=== PATIENT | female | born 1970 | race Caucasian/White ===

== ENCOUNTER 2020-05-24 11:15 | Outpatient (REF) | payer OTHER, SELFPAY ==
[2020-05-24 11:37] LABS: COVID-19 Test Negative (Negative)
== END 2020-05-24 11:16 | disposition home or self-care (01) ==
LOC: HO.LAB 11:15
PROVIDERS: PCP Internal Medicine; Visit Provider Internal Medicine
DX: Z20.828 Contact with and (suspected) exposure to other viral communicable diseases (principal)
CPT/HCPCS: 87635

== ENCOUNTER 2020-07-18 15:06 | Outpatient (REF) | payer OTHER, SELFPAY ==
--- NOTE | 2020-07-18 15:12 | MM_ITS ---
EXAMINATION: MM SCREENING DIGITAL BREAST TOMOSYNTHESIS, BILATERAL CLINICAL INFORMATION: Screening. Asymptomatic. Family history breast cancer mother (BRCA neg), grandmother. History benign left MR guided biopsy 2017 (fibroadenoma). The lifetime risk of breast cancer based on the Tyrer-Cuzick Model is 26%. COMPARISON: Mammography: 03/10/2019, 02/07/2018, MR breasts 08/28/2018. TECHNIQUE: Digital breast tomosynthesis is performed in both the craniocaudal and mediolateral oblique views along with computer-aided detection (CAD). Synthesized 2D images are generated from the tomosynthesis. FINDINGS: The breasts are heterogeneously dense, which may obscure small masses (ACR BI-RADS breast composition Category c). Breast tissue composition borders on average fibroglandular. There are no significant masses, abnormal calcifications, or other abnormalities. The cyst posterior upper outer right breast is again decreased in size from prior studies. Neither breast shows interval mass or architectural abnormality or abnormal calcifications. Again, there are 2 biopsy clip markers left breast central aspect and mid 2:30 o'clock position. MM/MM tomosynthesis screening BI IMPRESSION: No mammographic evidence of malignancy. ASSESSMENT: BI-RADS 2: Benign RECOMMENDATION: 1. Routine annual mammography screening. 2. The lifetime risk of breast cancer based on the Tyrer-Cuzick Model is 26%. Additional annual adjunct screening with breast MRI may be of benefit in women with a risk score of 20% or greater. This patient's information was entered into a reminder system with a target due date for their next mammogram.
== END 2020-07-18 15:07 | disposition home or self-care (01) ==
LOC: HO.MAMMO 15:06
PROVIDERS: PCP Internal Medicine; Visit Provider Obstetrics & Gynecology Gynecology
DX: Z12.31 Encounter for screening mammogram for malignant neoplasm of breast (principal)
CPT/HCPCS: 77063; 77067

== ENCOUNTER 2020-09-26 08:23 | Outpatient (REF) | payer OTHER, SELFPAY ==
[2020-09-26 08:46] LABS: COVID-19 Test Negative (Negative); IDNOW Serial# 55D5AD1C
== END 2020-09-26 08:24 | disposition home or self-care (01) ==
LOC: HO.EMPCOV 08:23
PROVIDERS: Visit Provider Internal Medicine
DX: Z20.822 Contact with and (suspected) exposure to COVID-19 (principal)
CPT/HCPCS: 36415; 87635; C9803

== ENCOUNTER 2020-12-02 08:22 | Outpatient (REF) | payer OTHER, SELFPAY ==
[2020-12-02 11:39] LABS: MANUAL DIFF FLAG NO
[2020-12-02 11:55] LABS: Basophils Percent Auto 0.5 % (0-2); Eosinophils Absolute Auto 0.1 X10*3/uL (0.0-0.4); Eosinophils Percent Auto 1.3 % (0-4); Hematocrit 44.1 % (37-47); Hemoglobin 14.6 g/dl (12.0-16.0); Imm Gran Abs Auto 0.02 X10*3/uL (0.00-0.03); Imm Gran Pct Auto 0.2 % (0.0-0.4); Lymphocytes Absolute Auto 1.8 X10*3/uL (1.2-4.9); Lymphocytes Percent Auto 21.3 % (20-40); Mean Corpuscular HGB Conc 33.1 g/dl (31.0-35.0); Mean Corpuscular Hemoglobin 32.6 pg (27.0-33.0); Mean Corpuscular Volume 98.4 fL (80-98); Mean Platelet Volume 10.9 fL (9.4-12.3); Monocytes Absolute Auto 0.6 X10*3/uL (0.1-1.2); Monocytes Percent Auto 7.2 % (2-11); Neutrophils Absolute Auto 5.7 X10*3/uL (2.0-8.3); Neutrophils Percent Auto 69.5 % (45-73); Platelet Count 207 X10*3/uL (160-400); Red Blood Count 4.48 X10*6/uL (4.20-5.50); Red Cell Distribution Width 12.4 % (11.0-16.0); White Blood Count 8.2 X10*3/uL (4.8-10.8)
[2020-12-02 12:08] LABS: Alanine Aminotransferase 19 U/L (0-31); Albumin Level 4.7 g/dL (3.5-5.0); Alkaline Phosphatase 67 U/L (39-117); Anion Gap 14 (12-20); Aspartate Amino Transferase 20 U/L (5-31); Bilirubin Total 0.7 mg/dL (0.0-1.0); Blood Urea Nitrogen 15 mg/dL (9-16); Calcium 9.8 mg/dL (8.4-10.2); Carbon Dioxide 29 mmol/L (22-29); Chloride 105 mmol/L (96-108); Estimated Glomerular Filt Rate > 60; Glucose Random 78 mg/dL (60-115); Potassium 4.6 mmol/L (3.3-5.1); Sodium 143 mmol/L (135-145); Total Protein 7.2 g/dL (6.5-8.0)
[2020-12-02 12:36] LABS: Erythrocyte Sedimentation Rate 7 MM/HR (0-20)
== END 2020-12-02 08:23 | disposition home or self-care (01) ==
LOC: HO.HMGCLDS 08:22
PROVIDERS: PCP Nurse Practitioner Family; Visit Provider Nurse Practitioner Family
DX: Z00.00 Encounter for general adult medical examination without abnormal findings (principal); R59.0 Localized enlarged lymph nodes
CPT/HCPCS: 36415; 80053; 85025; 85652

== ENCOUNTER 2020-12-06 15:20 | Outpatient (REF) | payer OTHER, SELFPAY ==
--- NOTE | ~2020-12-06 | US_ITS ---
EXAMINATION: US SOFT TISSUE NECK CLINICAL INFORMATION: Localized enlarged lymph nodes. COMPARISON: Ultrasound soft tissue head/neck thyroid dated 07/31/2019 and 11/15/2016. CT neck with intravenous contrast dated 11/28/2016. TECHNIQUE: Ultrasound of the left cervical neck soft tissues is performed with high- frequency galaviz-scale imaging and color Doppler. FINDINGS: There are numerous left cervical lymph nodes. Largest lymph nodes are left level 2 lymph nodes adjacent to the submandibular gland. The largest lymph node measures 1.4 x 0.9 x 1.4 cm. This is slightly enlarged, diffusely hypoechoic without hyperechoic hilum and demonstrates mixed cortical and hilar flow. This appears increased in size from previous exam July 2019. US/US soft tiss head and/or neck IMPRESSION: Numerous left cervical lymph nodes. Largest lymph node is a left submandibular lymph node with abnormal ultrasound morphology and flow and is increased in size from July 2019. Tissue sampling should be considered.
== END 2020-12-06 15:21 | disposition home or self-care (01) ==
LOC: HO.HMGCX 15:20
PROVIDERS: PCP Nurse Practitioner Family; Visit Provider Nurse Practitioner Family
DX: R59.0 Localized enlarged lymph nodes (principal)
CPT/HCPCS: 76536

== ENCOUNTER → 2020-12-20 09:21 | Outpatient (BNVA) | payer OTHER, SELFPAY | PROVIDERS: PCP Nurse Practitioner Family; Visit Provider Surgery ==

== ENCOUNTER 2021-01-03 08:40 | Outpatient (REF) | payer OTHER, SELFPAY ==
--- NOTE | ~2021-01-03 | US_ITS ---
EXAMINATION: ULTRASOUND-GUIDED LEFT SOME NODULAR LYMPH NODE BIOPSY CLINICAL INFORMATION: Enlarging cervical left lymph nodes COMPARISON: Ultrasound soft tissue neck TECHNIQUE: Following explaining ultrasound-guided left neck lymph node biopsy procedure, benefits and risk, a written consent was obtained. Patient was placed supine on ultrasound stretcher and preliminary ultrasound imaging was obtained through the left neck and documented. An optimal site was selected along the left neck in the submandibular fossa and marked. Marked site was cleaned and draped in usual sterile manner. 1% lidocaine was injected puncture site. Under sterile ultrasound guidance. The pass fine-needle biopsy aspiration was performed through the largest left submental lymph node. Postprocedure complete hemostasis achieved at puncture site. Patient tolerated procedure extremely well. FINDINGS: Successful ultrasound-guided left cervical/submental space lymph node fine-needle aspiration performed. Preliminary pathology results revealed adequate tissue for diagnosis. Tissue collected was sent for lymphoma/flow cytometry evaluation US/US guided fine needle asp IMPRESSION: Excess fecal ultrasound-guided left neck/submental space lymph node fine-needle aspiration biopsy performed.
[2021-01-03] MEDS: Lidocaine HCl 1 % MPF 5 ML VIAL SUBCUT (10:06)
== END 2021-01-03 08:41 | disposition home or self-care (01) ==
LOC: HO.US 08:40
PROVIDERS: Radiology Diagnostic Radiology; PCP Nurse Practitioner Family; Visit Provider Surgery
DX: R59.0 Localized enlarged lymph nodes (principal)
CPT/HCPCS: 10005; 36415; 88172; 88173; 88177; 88184; 88185; 88300

== ENCOUNTER 2021-01-16 12:46 | Outpatient (REF) | payer OTHER, SELFPAY ==
--- NOTE | ~2021-01-16 | US_ITS ---
EXAMINATION: US SCREENING ULTRASOUND BREAST, BILATERAL CLINICAL INFORMATION: Dense breasts on mammography. Screening ultrasound. Tyrer-Cuzick Score 26%. Family history breast cancer, mother and grandmother. Personal history benign left ultrasound-guided biopsy 08/17/2015 (benign breast tissue with portions of apocrine cyst). Personal history benign left MR-guided biopsy 09/12/2016 (fibroadenoma). COMPARISON: Mammography 07/18/2020, targeted right breast ultrasound 02/11/2018, targeted left breast ultrasound 08/31/2016 and 12/28/2015. TECHNIQUE: Ultrasound is performed using grayscale imaging and color Doppler. Imaging is performed to include the four quadrants and retroareolar region. Both breasts are imaged. FINDINGS: Right breast: There is no suspicious finding by ultrasound. There is no solid mass or focal architectural abnormality. The previously noted cyst 10:00 position 5 cm from nipple is decreased in size. Prior measurements are 1.4 x 0.9 cm and current measurements are 0.6 x 0.5 cm. There is increased through-transmission of sound. Left breast: There is no suspicious finding by ultrasound. There is no cystic or solid mass or focal architectural abnormality. US/US breast RT complete IMPRESSION: 1. No suspicious findings on screening breast ultrasound. 2. Small cyst upper outer right breast decreased in size from prior ultrasound 2017. ASSESSMENT: BI-RADS 2: Benign RECOMMENDATION: Routine annual mammography screening. This patient's information was entered into a reminder system with a target due date for their next mammogram.
--- NOTE | ~2021-01-16 | US_ITS ---
EXAMINATION: US SCREENING ULTRASOUND BREAST, BILATERAL CLINICAL INFORMATION: Dense breasts on mammography. Screening ultrasound. Tyrer-Cuzick Score 26%. Family history breast cancer, mother and grandmother. Personal history benign left ultrasound-guided biopsy 08/17/2015 (benign breast tissue with portions of apocrine cyst). Personal history benign left MR-guided biopsy 09/12/2016 (fibroadenoma). COMPARISON: Mammography 07/18/2020, targeted right breast ultrasound 02/11/2018, targeted left breast ultrasound 08/31/2016 and 12/28/2015. TECHNIQUE: Ultrasound is performed using grayscale imaging and color Doppler. Imaging is performed to include the four quadrants and retroareolar region. Both breasts are imaged. FINDINGS: Right breast: There is no suspicious finding by ultrasound. There is no solid mass or focal architectural abnormality. The previously noted cyst 10:00 position 5 cm from nipple is decreased in size. Prior measurements are 1.4 x 0.9 cm and current measurements are 0.6 x 0.5 cm. There is increased through-transmission of sound. Left breast: There is no suspicious finding by ultrasound. There is no cystic or solid mass or focal architectural abnormality. US/US breast LT complete IMPRESSION: 1. No suspicious findings on screening breast ultrasound. 2. Small cyst upper outer right breast decreased in size from prior ultrasound 2017. ASSESSMENT: BI-RADS 2: Benign RECOMMENDATION: Routine annual mammography screening. This patient's information was entered into a reminder system with a target due date for their next mammogram.
== END 2021-01-16 12:47 | disposition home or self-care (01) ==
LOC: HO.MAMMO 12:46
PROVIDERS: PCP Nurse Practitioner Family; Visit Provider Obstetrics & Gynecology Gynecology
DX: R92.2 Inconclusive mammogram (principal)
CPT/HCPCS: 76641

== ENCOUNTER 2021-07-19 12:09 | Outpatient (REF) | payer OTHER, SELFPAY ==
[2021-07-19 13:16] LABS: Appearance Urine CLOUDY; Color Urine YELLOW; Glucose Urine UA NEG (NEG); Leukocyte Esterase Urine 1+ (NEG); Nitrite Urine POS (NEG); PH 5.5 (5.0-8.0); Specific Gravity - Urine >= 1.030 (1.005-1.025); UACC Culture Trigger YES; Urine Blood 2+ (NEG); Urine Ketones NEG (NEG); Urine Protein TRACE MG/DL (NEG-TRACE)
[2021-07-19 14:45] LABS: Bacteria Urine 2+ /LPF; RBC Urine 30-49 /HPF (0); Squamous Epithelial Cell Urine 2+ /LPF; WBC Urine TNTC /HPF (0-4)
== END 2021-07-19 12:10 | disposition home or self-care (01) ==
LOC: HO.LAB 12:09
PROVIDERS: PCP Internal Medicine; Visit Provider Internal Medicine
DX: R30.0 Dysuria (principal)
CPT/HCPCS: 81001; 87086; 87088; 87186

== ENCOUNTER 2021-07-31 15:02 | Outpatient (REF) | payer OTHER, SELFPAY ==
--- NOTE | ~2021-07-31 | MM_ITS ---
EXAMINATION: MM SCREENING DIGITAL BREAST TOMOSYNTHESIS, BILATERAL CLINICAL INFORMATION: Screening. Asymptomatic. History benign left MR biopsy 2017, fibroadenoma and left ultrasound-guided biopsy 2016 (portions of an apocrine cyst). Family history breast cancer mother (BRCA neg), and grandmother. The lifetime risk of breast cancer based on the Tyrer-Cuzick Model is 25%. COMPARISON: Mammography: 07/18/2020, 03/10/2019, 02/07/2018; bilateral breast ultrasound 01/16/2021 TECHNIQUE: Digital breast tomosynthesis is performed in both the craniocaudal and mediolateral oblique views along with computer-aided detection (CAD). Synthesized 2D images are generated from the tomosynthesis. FINDINGS: There are scattered areas of fibroglandular density (ACR BI-RADS breast composition Category b). There are no significant masses, abnormal calcifications, or other abnormalities. There are 2 biopsy clip markers again seen left breast mid central upper quadrant. Known cyst posterior upper outer right breast continues to decrease in size, now with 0.6 cm. The axilla and skin contours are unremarkable. MM/MM tomosynthesis screening BI IMPRESSION: No mammographic evidence of malignancy. ASSESSMENT: BI-RADS 2: Benign RECOMMENDATION: 1. Routine annual mammography screening. 2. The lifetime risk of breast cancer based on the Tyrer-Cuzick Model is 25%. Additional annual adjunct screening with breast MRI may be of benefit in women with a risk score of 20% or greater. This patient's information was entered into a reminder system with a target due date for their next mammogram.
== END 2021-07-31 15:03 | disposition home or self-care (01) ==
LOC: HO.MAMMO 15:02
PROVIDERS: PCP Internal Medicine; Visit Provider Nurse Practitioner Family
DX: Z12.31 Encounter for screening mammogram for malignant neoplasm of breast (principal)
CPT/HCPCS: 77063; 77067

== ENCOUNTER 2021-09-04 07:01 | Day surgery (SDC) | payer OTHER, SELFPAY ==
[2021-08-28 14:53] VITALS: BMI 22.8
--- NOTE | 2021-09-01 12:54 | P.CONAN_ITS ---
Documented by User: Gabby Marsh NP 09/01/21 12:55 HPI - Anesthesia Eval Consult details Narrative: 51yo F for Colonoscopy [facility] Active Problems Active Problems: All Active Problems (Updated 12/20/20 @ 10:16 by Donny Figueroa MD) Lymphadenopathy of left cervical region (Acute) Past Medical History Medical History (Updated 12/20/20 @ 10:16 by Donny Figueroa MD) At high risk for breast cancer Family History Family History (Updated 12/20/20 @ 09:40 by ANTONIO Monk) Mother Breast cancer Maternal Grandmother Breast cancer Surgical History Surgical History (Updated 08/28/21 @ 14:48 by Kareen Monzon RN) No pertinent past surgical history Social History Social History (Updated 12/20/20 @ 09:40 by ANTONIO Monk) Alcohol intake: current Alcohol intake frequency: holidays/special occasions only Patient Tobacco Use Status: Current everyday Tobacco user Tobacco use type: Cigarette Cigarettes Per Day: 10 Use of substances other than those prescribed or required for medical reasons: No Advance Directives: No Advance Directives Information Provided: Yes Advance Directives on File: No Meds Allergies Allergy/AdvReac Type Severity Reaction Status Date / Time Seasonal Allergies Allergy Mild Itchy Eyes Verified 08/28/21 14:43 Home Medications Medication Instructions Recorded Confirmed Last Taken Type ascorbic acid 500 mg PO DAILY 08/28/21 08/28/21 Unknown History (vitamin C) 500 mg tablet (Vitamin C) Exam Exam Date and Time: September 01, 2021 1254 Height,Weight and Vital Signs: Height 5 ft 8 in Weight 68.039 kg Assessment and Plan Assessment Anesthesia Assessment: Chart Reviewed Documented by User: Melchor Welch 09/04/21 09:19 [facility] Past Medical History Medical History (Updated 12/20/20 @ 10:16 by Donny Figueroa MD) At high risk for breast cancer Functional capacity: independent ambulation Family History Family History (Updated 12/20/20 @ 09:40 by ANTONIO Monk) Mother Breast cancer Maternal Grandmother Breast cancer Family history of problems with anesthesia: Yes (Possible laryngospasm during colonoscopy ) Surgical History Surgical History (Updated 08/28/21 @ 14:48 by Kareen Monzon RN) No pertinent past surgical history History of Problems with Anesthesia: No Social History Social History (Updated 12/20/20 @ 09:40 by ANTONIO Monk) Alcohol intake: current Alcohol intake frequency: holidays/special occasions only Patient Tobacco Use Status: Current everyday Tobacco user Tobacco use type: Cigarette Cigarettes Per Day: 10 Use of substances other than those prescribed or required for medical reasons: No Advance Directives: No Advance Directives Information Provided: Yes Advance Directives on File: No Meds Allergies Allergy/AdvReac Type Severity Reaction Status Date / Time Seasonal Allergies Allergy Mild Itchy Eyes Verified 08/28/21 14:43 Home Medications Medication Instructions Recorded Confirmed Last Taken Type ascorbic acid 500 mg PO DAILY 08/28/21 08/28/21 Unknown History (vitamin C) 500 mg tablet (Vitamin C) Exam Airway Mallampati Class: III TM Dist: >3cm Neck ROM: Full Loose/Missing/Broken Teeth: Yes (Crowns and implants ) Heart: rrr Lungs: bl breath sounds Assessment and Plan Assessment Anesthesia Assessment: Anesthesia Plan Discussed Final Anesthetic Review Family History of Problems with Anesthesia: Yes (Possible laryngospasm during colonoscopy ) History of Problems with Anesthesia: No NPO: Yes ASA Class: II Final Preanesthetic Review: Meds/Allgs Chart Reviewed, Consent Obtained/Reviewed and Anes Risks/Benef Reviewed Patient Risk: Intermediate Procedure Risk: Intermediate Anesthetic Plan Anesthetic Plan: MAC: Disposition: Standard PACU
[2021-09-04 07:14] VITALS: BP 143/94; PULSE 81; RESP 18; TEMP 37.1; O2SAT 98
--- NOTE | 2021-09-04 07:48 | PC.NURSE ---
9480 pt states, I feel fuzzy during IV start, vasovagal pale, hob flat bp 101/63 hr 64., iv site wnl retaped, with cool cloth given. Dr. johnston @ beside. continue to [facility]. pt improved,anxious & teery, emotional support given. pt verbalizes anxiety r/t mother with passing out. ^ grandfather with perforation during colonoscopy
[2021-09-04] MEDS: Lactated Ringers 1,000 ML 100 ML IVCONT (07:53)
--- NOTE | 2021-09-04 07:55 | PC.NURSE ---
pt felling better with LR infusing.
[2021-09-04 07:57] VITALS: BP 129/90; PULSE 63
[2021-09-04 09:46] VITALS: BP 111/79; PULSE 64; RESP 16; TEMP 36.5; O2SAT 97
--- NOTE | 2021-09-04 09:46 | PM.OP ---
Brief Operative Note Date of Service: 09/04/21 Pre-op diagnosis: Screening Post-op diagnosis: other (Colon polyps) Procedure: Colonoscopy to the cecum and TI with bx/removal of polyps Surgeon: Sudhir Pierce Anesthesia: MAC Was an Pilot Control Operator Helper used for this Procedure?: No Estimated blood loss (mL): 2.0 Pathology: other (A. Polyp at 30cm B. Polyp at 20cm) Condition: stable Disposition: PACU
[2021-09-04 10:00] VITALS: BP 121/84; PULSE 64; RESP 16; O2SAT 97
--- NOTE | 2021-09-04 10:09 | OP_ITS ---
SURGEON: Sudhir Pierce MD INDICATIONS: The patient presents for evaluation of colorectal cancer screening. Full consent has been obtained from her for this, including risks of bleeding and perforation. PREOPERATIVE DIAGNOSIS: Colorectal cancer screening. POSTOPERATIVE DIAGNOSIS: PROCEDURE PERFORMED: Colonoscopy to cecum and terminal ileum with biopsy and removal of polyps. ESTIMATED BLOOD LOSS: COMPLICATIONS: ANESTHESIA: Medication used, monitored anesthesia care. ASSISTANTS: SPECIMENS: POSTOPERATIVE DIAGNOSES: Colorectal cancer screening, small colon polyp, diverticulosis, and internal hemorrhoids. DESCRIPTION OF PROCEDURE: The patient was placed in the left lateral decubitus position. The digital rectal exam revealed no abnormalities. The Olympus video pediatric colonoscope was entered into the rectum and advanced to the cecum with the assistance of abdominal wall pressure. Once in the cecum, I did identify normal-appearing cecal pouch with appendiceal orifice and a normal-appearing ileocecal valve. The terminal ileum was cannulated and appeared normal. Scope was withdrawn back in the colon. The entire cecum and ileocecal valve appeared normal. The scope was slowly withdrawn assessing all mucosal surfaces carefully. Preparation was excellent. At 20 cm and at 30 cm, were flat 4 or 5 mm polyps, which were each biopsied and completely removed with the cold biopsy forceps I did not visualize any other polyps, colitis, or angiodysplasia. There was a mild amount of sigmoid diverticulosis. In the rectum, scope was retroflexed visualizing some small internal hemorrhoids, but no other pathology. The rectal mucosa appeared normal. The scope was straightened and withdrawn from the patient. She tolerated the procedure well and was returned to the recovery area in stable condition. IMPRESSION: 1. Small colon polyps, status post biopsy and removal. 2. Diverticulosis. 3. Internal hemorrhoids. PLAN: The results of the biopsy will be checked. If these are tubular adenomas, I would recommend a followup colonoscopy in 5 years. If they are only hyperplastic, I would recommend a followup colonoscopy in 10 years. She will otherwise see me on a p.r.n. basis. MD ALLEN Rodriguez/DANA / [id number]
== END 2021-09-04 11:02 | disposition home or self-care (01) ==
PROVIDERS: PCP Internal Medicine; Visit Provider Internal Medicine
PROC: 0DJD8ZZ Inspection of Lower Intestinal Tract, Via Natural or Artificial Opening Endoscopic (ICD-10-PCS; CPT 45378; principal; 2021-09-04 08:20)
DX: Z12.11 Encounter for screening for malignant neoplasm of colon (principal); D12.5 Benign neoplasm of sigmoid colon; K57.30 Diverticulosis of large intestine without perforation or abscess without bleeding; K64.8 Other hemorrhoids; F17.210 Nicotine dependence, cigarettes, uncomplicated
CPT/HCPCS: 45380; 88305

== ENCOUNTER 2022-01-16 12:47 | Outpatient (REF) | payer BC, SELFPAY ==
--- NOTE | ~2022-01-16 | MR_ITS ---
EXAMINATION: MR BREAST WITHOUT AND WITH CONTRAST, BILATERAL CLINICAL INFORMATION: High-risk screening. COMPARISON: MRI 08/28/2018 TECHNIQUE: Imaging was performed with a dedicated breast coil. Prior to the administration of contrast, bilateral axial T1 and bilateral axial T2 weighted sequences were obtained. After the uneventful administration of?6 mL of Gadavist, dynamic contrast-enhanced VIBRANT series through the breasts in the axial plane were performed. Subtracted images were performed and reviewed. A delayed sagittal sequence through both breasts was acquired. Additionally, CAD post-processing, including maximum intensity projections, 3-D reconstructions and kinetic analysis, were performed an independent workstation and reviewed by the interpreting radiologist is a portion of this exam. FINDINGS: The patient's fibroglandular tissue demonstrates mild background enhancement. LEFT BREAST: 2 central foci of magnetic susceptibility artifact corresponding to biopsy clips. No suspicious masslike or non-masslike enhancement. No abnormal skin thickening or nipple retraction. No abnormal architectural distortion. Review of the T2 weighted images demonstrates no fibrocystic changes or dilated ducts. Review of kinetic images reveals no additional findings. RIGHT BREAST: No suspicious masslike or non-masslike enhancement. No abnormal skin thickening or nipple retraction. No abnormal architectural distortion. Review of the T2 weighted images demonstrates no fibrocystic changes or dilated ducts. Review of kinetic images reveals no additional findings. There is no suspicious internal mammary chain or axillary adenopathy. There are multiple partially imaged T2 hyperintense structures within the left lobe of the liver. These are most consistent with cysts. MR/MR breast BI wo/w con IMPRESSION: No MR specific evidence of malignancy. ASSESSMENT: LEFT BREAST: BI-RADS 1-Negative RIGHT BREAST: BI-RADS 1-Negative RECOMMENDATIONS: Clinical follow-up. Continued annual mammographic surveillance. Further breast MRI as risk factors dictate.
== END 2022-01-16 12:48 | disposition home or self-care (01) ==
LOC: HO.MRI 12:47
PROVIDERS: Visit Provider Obstetrics & Gynecology Gynecology
DX: R92.2 Inconclusive mammogram (principal); Z80.3 Family history of malignant neoplasm of breast
CPT/HCPCS: 77049; A9585